=== PATIENT | female | born 1990 | race Caucasian/White ===

== ENCOUNTER 2018-09-10 11:38 | Inpatient (IN) | payer OTHER ==
[2018-09-10 12:40] LABS: RUPTURE FETAL MEMBRANES POSITIVE (NEGATIVE)
[2018-09-10] MEDS ORDERED: IBUPROFEN 600 MG TAB PO (13:00)
[2018-09-10] MEDS ORDERED: OXYCODONE/ASPIRIN (4.88/325) TAB PO (13:00)
[2018-09-10] MEDS ORDERED: CARBOPROST 250 MCG INJ IM (13:00)
[2018-09-10] MEDS ORDERED: LIDOCAINE 1% (MPF) 30 ML INJ INJ (13:00)
[2018-09-10] MEDS ORDERED: BUTORPHANOL 2 MG INJ IV (13:00)
[2018-09-10] MEDS ORDERED: METHYLERGONOVINE 0.2 MG INJ IM (13:00)
[2018-09-10] MEDS ORDERED: OXYTOCIN 30 UNITS/LR 500 ML IV ×2 (13:00)
[2018-09-10] MEDS ORDERED: MISOPROSTOL 200 MCG TAB PR (13:00)
[2018-09-10 14:48] LABS: ADD MAN DIFF? NO
[2018-09-10] MEDS: MISOPROSTOL 50 MCG CAPSULE PO ×3 (14:49→22:54)
[2018-09-10] MEDS: LACTATED RINGER'S 1,000 ML IV ×2 (14:50→22:58)
[2018-09-10 14:51] LABS: WHITE BLOOD COUNT 7.6 10^3/ul (4.8-10.8)
[2018-09-10 14:51] LABS: ABNORMAL IP MESSAGE 1; BASOPHILS % 0.3 % (0.0-2.0); EOSINOPHILS % 0.3 % (0.0-7.0); HEMATOCRIT 36.7 % (37.0-47.0); HEMOGLOBIN 12.1 g/dl (12.0-16.0); LYMPHOCYTES # 1.2 10^3/ul (0.8-2.9); LYMPHOCYTES % 16.1 % (15.0-51.0); MEAN CORPUSCULAR HEMOGLOBIN 30.2 pg (29.0-33.0); MEAN CORPUSCULAR VOLUME 91.5 fl (82.0-101.0); MEAN PLATELET VOLUME 13.1 fl (7.4-10.4); MONOCYTE # 0.7 10^3/ul (0.3-0.9); MONOCYTES % 8.8 % (0.0-11.0); NEUTROPHIL # 5.6 10^3/ul (1.6-7.5); NEUTROPHILS % 74.1 % (39.0-77.0); PLATELET COUNT 120 10^3/UL (140-415); RED BLOOD COUNT 4.01 10^6/ul (4.20-5.40); RED CELL DISTRIBUTION WIDTH 13.7 % (11.5-14.5)
[2018-09-10 14:59] LABS: POSITIVE DIFF @See below
[2018-09-10 15:14] LABS: INR 0.77; PROTIME 10.9 Sec (11.9-14.9); PT RATIO 0.9
[2018-09-10 15:15] LABS: PARTIAL THROMBOPLASTIN TIME 25.7 Sec (23.0-35.0)
[2018-09-10 15:20] LABS: AMPHETAMINE/METHAMPHETAMINE Negative (NEGATIVE); BARBITURATES Negative (NEGATIVE); BENZODIAZEPINES Negative (NEGATIVE); CANNABINOIDS Negative (NEGATIVE); COCAINE Negative (NEGATIVE); OPIATES Negative (NEGATIVE)
[2018-09-10 15:38] LABS: HEPATITIS B SURFACE ANTIGEN NEGATIVE (NEGATIVE)
[2018-09-10 15:53] LABS: ADD UMIC YES; UR ASCORBIC ACID NEGATIVE (NEGATIVE); UR BACTERIA FEW /HPF (NONE SEEN); UR BILIRUBIN (Dip) NEGATIVE (NEGATIVE); UR BLOOD (Dip) 1+ mg/dL (NEGATIVE); UR CLARITY SLIGHTLY CLOUDY (CLEAR); UR COLOR YELLOW (YELLOW); UR GLUCOSE (Dip) NEGATIVE (NEGATIVE); UR KETONES (Dip) NEGATIVE (NEGATIVE); UR LEUKOCYTE ESTERASE (Dip) NEGATIVE Leu/ul (NEGATIVE); UR MUCUS FEW /HPF (NONE SEEN); UR NITRITE (Dip) NEGATIVE (NEGATIVE); UR RBC 8 /HPF (0-5); UR SPECIFIC GRAVITY (Dip) 1.014 (1.003-1.030); UR SQUAMOUS EPITHELIAL CELL FEW /HPF (FEW); UR TOTAL PROTEIN (Dip) 1+ mg/dl (NEGATIVE); UR UROBILINOGEN (Dip) NEGATIVE (NEGATIVE); UR WBC 5 /HPF (0-5)
[2018-09-11] MEDS: MISOPROSTOL 50 MCG CAPSULE PO ×4 (03:07→21:00)
[2018-09-11] MEDS: LACTATED RINGER'S 1,000 ML IV ×4 (07:27→20:46)
[2018-09-11 14:56] LABS: RAPID PLASMA REAGIN NONREACTIVE (NR)
[2018-09-11] MEDS: AMPICILLIN 2 GM/NS (PMX) 100 ML IV (16:35)
[2018-09-11] MEDS: OXYTOCIN 30 UNITS/LR 500 ML IV (16:36)
[2018-09-11] MEDS ORDERED: FENTAnyl 2MCG/ML-ROPIV 0.2% 100 ML (18:25)
[2018-09-11] MEDS ORDERED: LACTATED RINGER'S 1,000 ML IV (18:55)
[2018-09-11] MEDS ORDERED: ONDANSETRON 4 MG INJ IV (19:00)
[2018-09-11] MEDS ORDERED: DIPHENHYDRAMINE 50 MG INJ IV (19:00)
[2018-09-11] MEDS ORDERED: ZOLPIDEM 5 MG TAB PO (19:00)
[2018-09-11] MEDS ORDERED: NALBUPHINE HCL (10 MG/1 ML) INJ IV (19:00)
[2018-09-11] MEDS ORDERED: COSYNTROPIN 0.25 MG INJ IV (19:00)
[2018-09-11] MEDS ORDERED: NALOXONE (0.4 MG/ML) INJ IV (19:00)
[2018-09-11] MEDS ORDERED: EPHEDrine 25 MG/5 ML SYG (19:27)
[2018-09-11] MEDS ORDERED: PHENYLephrine 10 MG INJ (19:27)
[2018-09-11] MEDS: AMPICILLIN 1 GM/NS (PMX) 50 ML IV (20:48)
[2018-09-12] MEDS: AMPICILLIN 1 GM/NS (PMX) 50 ML IV ×2 (00:50→05:13)
[2018-09-12] MEDS: MISOPROSTOL 50 MCG CAPSULE PO (01:00)
[2018-09-12] MEDS: FENTAnyl 2MCG/ML-ROPIV 0.2% 100 ML BAG EPI (02:50)
[2018-09-12] MEDS: LACTATED RINGER'S 1,000 ML IV (02:50)
[2018-09-12] MEDS: OXYTOCIN 30 UNITS/LR 500 ML IV ×2 (09:17→11:40)
[2018-09-12] MEDS: SOD CHLORIDE 0.9% IVPB (09:21)
[2018-09-12] MEDS: COSYNTROPIN IVPB (09:21)
[2018-09-12] MEDS ORDERED: OXYTOCIN 30 UNITS/LR 500 ML IV (12:00)
[2018-09-12] MEDS ORDERED: MISOPROSTOL 200 MCG TAB PR (12:00)
[2018-09-12] MEDS ORDERED: CARBOPROST 250 MCG INJ IM (12:00)
[2018-09-12] MEDS ORDERED: METHYLERGONOVINE 0.2 MG INJ IM (12:00)
[2018-09-12] MEDS ORDERED: NACL 0.9% 3 ML SYG IV (12:00)
[2018-09-12] MEDS ORDERED: IBUPROFEN 600 MG TAB PO (13:30)
[2018-09-12] MEDS ORDERED: OXYCODONE/ACETAMINOPHEN (5/325) TAB PO (13:30)
[2018-09-12] MEDS: WITCH HAZEL/GLYCERIN PAD PR (14:23)
[2018-09-12] MEDS: BENZOCAINE 20% 56 ML SPRAY TOP (14:23)
[2018-09-12] MEDS: LANOLIN HPA 1 PKT TOP ×2 (14:24)
[2018-09-13] MEDS: IBUPROFEN 600 MG TAB PO ×3 (08:32→23:49)
[2018-09-13 09:44] LABS: ADD MAN DIFF? NO
[2018-09-13 09:54] LABS: WHITE BLOOD COUNT 11.3 10^3/ul (4.8-10.8)
[2018-09-13 09:54] LABS: ABNORMAL IP MESSAGE 1; BASOPHILS % 0.2 % (0.0-2.0); EOSINOPHILS # 0.1 10^3/ul (0.0-0.5); EOSINOPHILS % 0.5 % (0.0-7.0); HEMATOCRIT 32.5 % (37.0-47.0); HEMOGLOBIN 10.3 g/dl (12.0-16.0); LYMPHOCYTES # 2.2 10^3/ul (0.8-2.9); LYMPHOCYTES % 19.1 % (15.0-51.0); MEAN CORPUSCULAR HEMOGLOBIN 29.6 pg (29.0-33.0); MEAN CORPUSCULAR HGB CONC 31.7 g/dl (32.0-37.0); MEAN CORPUSCULAR VOLUME 93.4 fl (82.0-101.0); MEAN PLATELET VOLUME 13.1 fl (7.4-10.4); MONOCYTE # 0.8 10^3/ul (0.3-0.9); MONOCYTES % 7.4 % (0.0-11.0); NEUTROPHIL # 8.2 10^3/ul (1.6-7.5); NEUTROPHILS % 72.2 % (39.0-77.0); PLATELET COUNT 97 10^3/UL (140-415); RED BLOOD COUNT 3.48 10^6/ul (4.20-5.40); RED CELL DISTRIBUTION WIDTH 14.1 % (11.5-14.5)
[2018-09-13 10:03] LABS: POSITIVE DIFF @See below
[2018-09-13] MEDS: FERROUS SULFATE (EC) 325 MG TAB PO (21:01)
[2018-09-14 08:35] LABS: ADD MAN DIFF? NO
[2018-09-14 08:45] LABS: WHITE BLOOD COUNT 8.9 10^3/ul (4.8-10.8)
[2018-09-14 08:45] LABS: BASOPHILS % 0.2 % (0.0-2.0); EOSINOPHILS # 0.2 10^3/ul (0.0-0.5); EOSINOPHILS % 1.8 % (0.0-7.0); HEMATOCRIT 37.8 % (37.0-47.0); LYMPHOCYTES # 2.5 10^3/ul (0.8-2.9); LYMPHOCYTES % 27.9 % (15.0-51.0); MEAN CORPUSCULAR HEMOGLOBIN 29.9 pg (29.0-33.0); MEAN CORPUSCULAR HGB CONC 31.7 g/dl (32.0-37.0); MEAN PLATELET VOLUME 12.9 fl (7.4-10.4); MONOCYTE # 0.6 10^3/ul (0.3-0.9); MONOCYTES % 6.8 % (0.0-11.0); NEUTROPHIL # 5.6 10^3/ul (1.6-7.5); NEUTROPHILS % 62.3 % (39.0-77.0); PLATELET COUNT 117 10^3/UL (140-415); RED BLOOD COUNT 4.02 10^6/ul (4.20-5.40)
[2018-09-14] MEDS: FERROUS SULFATE (EC) 325 MG TAB PO (09:44)
[2018-09-14] MEDS: IBUPROFEN 600 MG TAB PO (12:19)
== END 2018-09-14 16:20 | disposition home or self-care (01) | DRG 807 ==
LOC: OBT 11:38 → PP1 09-12 11:22 → L-D 11:39 → OBT 13:14 → L-D 13:14
PROVIDERS: Specialist
PROC: 10E0XZZ Delivery of Products of Conception, External Approach (ICD-10-PCS; principal; 2018-09-12)
PROC: 0KQM0ZZ Repair Perineum Muscle, Open Approach (ICD-10-PCS; 2018-09-12)
PROC: 3E033VJ Introduction of Other Hormone into Peripheral Vein, Percutaneous Approach (ICD-10-PCS; 2018-09-12)
DX: O76 Abnormality in fetal heart rate and rhythm complicating labor and delivery (principal); O69.81X0 Labor and delivery complicated by cord around neck, without compression, not applicable or unspecified; O70.1 Second degree perineal laceration during delivery; Z3A.39 39 weeks gestation of pregnancy; Z37.0 Single live birth
CPT/HCPCS: 62322; 76815; 76818; 80307; 81001; 84112; 85025; 85610; 85730; 86592; 86850; 86900; 86901; 87086; 87340; 99464